=== PATIENT | male | born 1985 | race Caucasian/White ===

== ENCOUNTER 2018-03-04 14:17 | Emergency (ER) | payer OTHER ==
[~2018-03-04] VITALS: Ht 195.6 cm; Wt 91.8 kg
[2018-03-04 15:08] LABS: HEMATOCRIT 40.9 % (38.0-50.0); HEMOGLOBIN 14.2 G/DL (12.5-16.6); MCH 29.6 PG (29.0-34.0); MCHC 34.7 G/DL (30.0-36.0); MCV 85.2 FL (86-99); RBC DIS.WIDTH-CV 13.2 % (11.8-14.6); RBC DIS.WIDTH-SD 40.7 % (39-53); WHITE BLOOD COUNT 10.3 K/uL (4.1-10.2)
[2018-03-04 15:24] LABS: CHLORIDE 101 mEq/L (99-109); POTASSIUM 4.3 mEq/L (3.7-5.4); SODIUM 137 mEq/L (136-147)
[2018-03-04 15:26] LABS: GLUCOSE 101 mg/dL (70-99)
[2018-03-04 15:30] LABS: CREATININE 5.4 mg/dL (0.6-1.3); GFR ESTIMATE (CALCULATED) 13 mL/min/ (58.99-99999)
[2018-03-04 15:31] LABS: UREA NITROGEN (BUN) 57 mg/dL (9-23)
[2018-03-04 15:56] LABS: PLAT.SUFFICIENCY ADEQUATE; PLATELET COUNT 207 K/uL (156-360)
[2018-03-04 18:20] VITALS: BP 169/109
== END 2018-03-04 18:20 ==
LOC: EME 14:17
PROVIDERS: Emergency Medicine
DX: N18.9 Chronic kidney disease, unspecified (principal); Z86.73 Personal history of transient ischemic attack (TIA), and cerebral infarction without residual deficits; Z86.69 Personal history of other diseases of the nervous system and sense organs
CPT/HCPCS: 80048; 85027; 99281; 99285